=== PATIENT | female | born 1950 | race Caucasian/White ===

== ENCOUNTER 2017-01-27 09:58 | Day surgery (SDC) ==
[2017-01-22 10:48] LABS: MANUAL DIFF NEEDED? NO
[2017-01-22 10:53] LABS: BASO% 0.2 % (0.0-0.8); EOS# 0.09 X1000 (0.0-0.7); EOS% 1.1 % (0.0-10.0); HEMOGLOBIN 13.6 g/dL (12.0-16.0); LYMPH# 3.69 X1000 (1.2-3.4); MCH 30.6 PG (27-31); MCHC 33.2 g/dL (33-37); MCV 92.1 FL (81-99); MONO% 8.7 % (1.7-9.3); MPV 8.9 FL (7.4-10.4); PLT 295 X1000 (130-400); RBC 4.45 XMIL (4.2-5.4)
[2017-01-22 11:17] LABS: AGAP 8; ALBUMIN 4.3 g/dL (3.5-5.0); ALKALINE PHOSPHATASE 80 U/L (32-104); BUN 20 mg/dL (8-22); CALCIUM 9.3 mg/dL (8.8-10.2); CHLORIDE 105 mmol/L (98-107); COSMO 287; GOT 11 U/L (10-30); GPT 12 U/L (10-36); POTASSIUM 4.6 mmol/L (3.5-5.1); SODIUM 143 mmol/L (136-145); TCO2 30 mmol/L (25-35); TOTAL BILIRUBIN 0.44 mg/dL (0.20-1.00); TOTAL PROTEIN 7.1 g/dL (6.3-8.3)
--- NOTE | 2017-01-22 12:00 | EKG Report ---
Test Performed on : 01/22/2017 10:33:49 AM Test Reason : PAT Blood Pressure : / mmHG Vent. Rate : 058 BPM Atrial Rate : 058 BPM P-R Int : 126 ms QRS Dur : 084 ms QT Int : 402 ms P-R-T Axes : 019 086 096 degrees QTc Int : 394 ms Sinus bradycardia. T wave abnormality, consider lateral ischemia Abnormal ECG When compared with ECG of 16-DEC-2013 14:06, (Unconfirmed) No significant change was found Confirmed by Jeffrey TIMMONS, Aleksandar Connell ([id number]) on 01/22/2017 3:25:03 PM
[2017-01-27] MEDS ORDERED: LR 1,000 ML ONE ×3 (10:18→14:49)
[2017-01-27] MEDS ORDERED: PEPCID ONE (10:18)
[2017-01-27] MEDS ORDERED: REGLAN ONE (10:18)
[2017-01-27] MEDS ORDERED: MEFOXIN 2 GM/NS 50 ML ONE (10:19)
[2017-01-27] MEDS ORDERED: VENTOLIN HFA INH ONE (10:45)
[2017-01-27] MEDS ORDERED: XYLOCAINE 1% ONE (11:40)
[2017-01-27] MEDS ORDERED: SODIUM CHLORIDE 0.9% ONE (11:40)
[2017-01-27] MEDS ORDERED: MARCAINE 0.25% PF/EPI 1:200,000 ONE (11:41)
[2017-01-27] MEDS ORDERED: DIPRIVAN 1% ONE (13:07)
[2017-01-27] MEDS ORDERED: VERSED ONE (13:07)
[2017-01-27] MEDS ORDERED: FENTANYL ONE (13:07)
[2017-01-27] MEDS: DILAUDID ONE ×4 (13:12→13:42)
--- NOTE | 2017-01-27 13:37 | Diag Imaging Result Document ---
PROCEDURE NAME: OPERATIVE CHOLANGIOGRAM - 01/27/2017 INTRAOPERATIVE CHOLANGIOGRAM, SINGLE VIEW TAKEN DURING A PROCEDURE PERFORMED BY [facility]: FINDINGS: Contrast filled the common bile duct and has emptied into the duodenum. No stone or stricture. Fluoroscopy time was 55 seconds. IMPRESSION: Negative exam.
[2017-01-27] MEDS ORDERED: ULTRAM ONE (14:05)
[2017-01-27] MEDS ORDERED: QUELICIN (DOSE) ONE (14:49)
[2017-01-27] MEDS ORDERED: ZOFRAN ONE (14:49)
[2017-01-27] MEDS ORDERED: XYLOCAINE-MPF 2% ONE (14:49)
[2017-01-27] MEDS ORDERED: NEOSTIGMINE ONE (14:49)
[2017-01-27] MEDS ORDERED: DECADRON ONE (14:49)
[2017-01-27] MEDS ORDERED: ROBINUL ONE (14:49)
[2017-01-27] MEDS ORDERED: VENTOLIN HFA ONE (14:49)
[2017-01-27] MEDS ORDERED: ZEMURON ONE (14:49)
[2017-01-27 14:56] VITALS: BP 143/83
--- NOTE | 2017-01-27 17:03 | OPERATIVE NOTE ---
PROCEDURE DATE: 01/27/2017 PREOPERATIVE DIAGNOSIS: Chronic cholecystitis. POSTOPERATIVE DIAGNOSIS: Chronic cholecystitis. PROCEDURE PERFORMED: Laparoscopic cholecystectomy with cholangiogram. SURGEON: Ramón Turcios MD IMPLEMENTATION ANALYST: None. ANESTHESIA: General endotracheal. FINDINGS: Normal biliary tree on cholangiogram. There were some adhesions on her right side. COMPLICATIONS: None at the time of dictation. ESTIMATED BLOOD LOSS: 5 mL. SPECIMENS REMOVED: Gallbladder and its contents. HISTORY: The patient is a 66-year-old female, presenting with symptoms concerning for gallbladder disease. The risks, benefits, and alternatives of the procedure were discussed. All questions were answered. DESCRIPTION OF PROCEDURE: After informed consent was obtained, the patient was brought to the operating theatre and transferred to the operating table and placed in supine position. General orotracheal anesthesia was then performed without complication. A formal time-out was then performed, confirming patient, date, and procedure. All were in agreement. At that time, attention was given to the abdomen. An infraumbilical incision was made, through which, using Optiview technique, we were able to insert an 11 mm trocar and connected it to insufflation. A pneumoperitoneum was achieved. Under direct visualization, we placed 3 more trocars, all 5 mm, 1 in the subxiphoid and 2 in the right upper quadrant. Using these, the gallbladder was identified. There were some adhesions on the right lateral wall. We did have to take these down sharply but, once we were able to do this, we were able to retract the gallbladder cephalad. We dissected out the cystic duct and cystic artery to achieve the critical view of safety. We clipped the cystic duct once and did a ductotomy. We performed a cholangiogram, which showed normal filling of the biliary tree. We then doubly clipped and ligated the cystic duct and cystic artery and then took the gallbladder off the gallbladder fossa using electrocautery and brought it out through the infraumbilical incision. We then irrigated the abdomen copiously. We examined the gallbladder fossa. The clips were in good position. No active bleeding. No drainage of bile. We then closed the infraumbilical incision with 0 Vicryl and Samuel-Danny device. We then removed all trocars and disconnected insufflation. The pneumoperitoneum was released. We then closed all skin incisions with 4-0 Monocryl and placed sterile dressings. The patient tolerated the procedure well and was transferred to the recovery room in stable condition.
== END 2017-01-27 14:50 | disposition home or self-care (01) ==
LOC: OPS 09:58
PROVIDERS: ATTEND Surgery
DX: K81.1 Chronic cholecystitis (principal); R10.11 Right upper quadrant pain; I10 Essential (primary) hypertension; F17.210 Nicotine dependence, cigarettes, uncomplicated; J44.9 Chronic obstructive pulmonary disease, unspecified; J45.909 Unspecified asthma, uncomplicated; K21.9 Gastro-esophageal reflux disease without esophagitis; M54.9 Dorsalgia, unspecified; Z79.899 Other long term (current) drug therapy; Z87.11 Personal history of peptic ulcer disease; Z80.0 Family history of malignant neoplasm of digestive organs; Z82.49 Family history of ischemic heart disease and other diseases of the circulatory system
CPT/HCPCS: 74300; 80053; 85025; 88304; 93005; 93010; C1751; J0330; J0694; J1100; J1170; J2250; J2405; J3010; J7120; Q9966; J2710

== ENCOUNTER 2019-01-11 06:36 | Observation (INO) ==
[2019-01-11 10:01] LABS: INR 0.81; PROTIME 11.8 Seconds (11.0-16.0)
[2019-01-11 10:02] LABS: PTT 29.1 Seconds (22.3-41.8)
--- NOTE | 2019-01-11 11:36 | Diag Imaging Result Doc PS360 ---
EXAM: CHEST-2 VIEWS 01/11/2019 HISTORY: POST LUNG BIOPSY TECHNIQUE: Inspiratory expiratory chest at 1116 COMMENT: There is a small apical pneumothorax on the right measuring less than 12 mm on the expiration view. There is no evidence of pleural fluid collection. Otherwise there is no evidence of acute disease. The opacity in the right upper lobe which has been previously demonstrated on CT is again noted. IMPRESSION: Small right apical pneumothorax following percutaneous biopsy. This report was discussed with Ethan Lanier M.D. on 01/11/2019 at 1133 and was readback. Electronically signed by Jeromy King 01/11/2019 11:34 AM
--- NOTE | 2019-01-11 11:40 | Diag Imaging Result Doc PS360 ---
EXAM: CT GUIDED BIOPSY LUNG 01/11/2019 HISTORY: R-UPPER LUNG TECHNIQUE: Percutaneous biopsy of the right upper lobe COMMENT: The risks and benefits the procedure including the possibility of bleeding, infection, reaction to lidocaine, or pneumothorax was discussed with the patient and she agreed to the procedure. Following sterile preparation the skin and administration 1% lidocaine to the skin and deeper soft tissues, a 20-gauge Temno coaxial core biopsy needle was employed to obtain three cores from the lesion. Some of the specimens contain anthracotic pigment. IMPRESSION: Successful CT-guided percutaneous biopsy of the right upper lobe. (Postprocedural radiographs demonstrate a small right apical pneumothorax.) Electronically signed by Jeromy King 01/11/2019 11:38 AM
[2019-01-11] MEDS ORDERED: DEMEROL ONE (11:45)
[2019-01-11] MEDS ORDERED: TYLENOL ONE (12:24)
[2019-01-11 12:47] LABS: BASO# 0.01 X1000 (0.0-0.2); BASO% 0.1 % (0.0-0.8); EOS# 0.09 X1000 (0.0-0.7); EOS% 1.3 % (0.0-10.0); HEMATOCRIT 40.2 % (37.0-47.0); HEMOGLOBIN 13.1 g/dL (12.0-16.0); LYMPH# 3.29 X1000 (1.2-3.4); LYMPH% 46.9 % (20.5-51.1); MCH 30.9 PG (27-31); MCHC 32.6 g/dL (33-37); MCV 94.8 FL (81-99); MONO# 0.65 X1000 (0.11-0.59); MONO% 9.3 % (1.7-9.3); MPV 9.1 FL (7.4-10.4); NEUT# 2.97 X1000 (1.4-6.5); NEUT% 42.4 % (42.2-75.2); PLT 298 X1000 (130-400); RBC 4.24 XMIL (4.2-5.4); WBC 7.01 X1000 (4.8-10.8)
[2019-01-11] MEDS ORDERED: SOLU-MEDROL IV ONE (12:54)
[2019-01-11] MEDS ORDERED: DUONEB (A & A) INH PRN (12:55)
[2019-01-11] MEDS ORDERED: TORADOL IV ONE (12:55)
[2019-01-11 12:56] LABS: AGAP 11; BUN 15 mg/dL (8-22); CALCIUM 9.1 mg/dL (8.8-10.2); CHLORIDE 102 mmol/L (98-107); COSMO 278; CREATININE 0.7 mg/dL (0.5-0.9); ESTIMATED GFR > 60; GLUCOSE 96 mg/dL (70-104); POTASSIUM 4.2 mmol/L (3.5-5.1); SODIUM 139 mmol/L (136-145); TCO2 26 mmol/L (25-35)
[2019-01-11] MEDS ORDERED: TORADOL IV PRN (13:07)
--- NOTE | 2019-01-11 13:26 | HISTORY AND PHYSICAL ---
HISTORY OF PRESENT ILLNESS: This is a 68-year old who had a CT-guided needle biopsy of her right lung and has a small pneumothorax. Does have a good deal of pleuritic pain, so going to put her in for observation, make sure this pneumothorax does not increase in size. PAST MEDICAL HISTORY: She has apparently hypertension and she has a long history of smoking. She has had dyspepsia and apparently gastritis and also colitis, but her main complaints apparently have been evaluating a right upper lobe pulmonary lesion and had biopsy today with pneumothorax. ALLERGIES: Codeine, morphine makes her sick, nauseated, nonsteroidal anti-inflammatories and aspirin upset her stomach. She is allergic to antihistamines, Bentyl and Flagyl. FAMILY HISTORY: Father with colon cancer. Mother with depression and hypertension. SOCIAL HISTORY: No alcohol, but she does smoke and has smoked for greater than 20-dbrp-bvhh history. REVIEW OF SYSTEMS: General: She is in a good deal discomfort, but she did not report any change in weight or fever or chills. HEENT: No complaints of change in visual or hearing acuity. No neck pain. Respiratory: She does have pleuritic pain and does feel a little short of breath. She has got pleuritic pain in the right mid upper anterior chest. Cardiovascular: No squeezing or pressure chest pain. No palpitations. GI/: No gross hematuria or dysuria. No change in her bowels reported. Endocrinologic/Hematologic: No significant history. PHYSICAL EXAMINATION: GENERAL: She is awake and alert. She is sitting up. She is holding the right side of her chest because of the pleuritic pain. VITALS: Temperature 98.6 degrees, pulse 54, respirations 18, blood pressure 113/58. HEENT: Pupils are equal. Conjunctiva pink. Sclerae clear. NECK: No distended neck veins. Neck was supple. No cervical or supraclavicular adenopathy appreciated. LUNGS: Clear anterior and posterior. I do not appreciate a pleural rub or pericardial rub. CARDIOVASCULAR: Regular rhythm and rate. PMI nondisplaced. ABDOMEN: Soft. No pedal edema. SKIN: Warm and dry. LABORATORY: White count 7010, hematocrit 40, platelet count 298,000. Sodium 139, potassium 4.2, chloride 102, BUN 15, creatinine 0.7. ProTime 11.8, PTT is 29. IMAGING: Chest x-ray: Small right apical pneumothorax following percutaneous biopsy reported. She had a CT lung biopsy successfully of the right upper lobe. ASSESSMENT AND PLAN: 1. CT-guided lung biopsy on the right with small pneumothorax. We are going to put her into observation. Hopefully, this will resolve spontaneously. She is in a good deal pleuritic pain. I will give her some Solu-Medrol and I will give her a Toradol. She states that opioids make her feel sick and make her confused. 2. History of hypertension, aware. 3. A long history of tobacco and suspect some underlying COPD. 4. She gives a history that she broke her ribs on her left side, but she never had to have a chest tube. cc: MD Ethan Horta MD
--- NOTE | 2019-01-11 14:00 | Diag Imaging Result Doc PS360 ---
EXAM: CHEST-2 VIEWS 01/11/2019 HISTORY: POST LUNG BX INSPIR-EXPIR TECHNIQUE: Inspiratory expiratory chest COMMENT: The volume of pneumothorax on the right has increased to measure 2.5 cm at the apex on the expiratory view. No apparent pleural fluid is present. IMPRESSION: Increasing right pneumothorax. This report was discussed with Sony Murphy M.D. on 01/11/2019 at 1357 and was readback. Electronically signed by Jeromy King 01/11/2019 1:57 PM
[2019-01-11] MEDS: NICODERM PATCH TD SCH (14:47)
[2019-01-11] MEDS: DUONEB (A & A) INH SCH ×3 (15:56→23:15)
--- NOTE | 2019-01-11 18:01 | Diag Imaging Result Doc PS360 ---
Chest x-ray two views - 01/11/2019 INDICATION: follow up pneumothorax COMPARISON: 1:49 PM FINDINGS: The right apical pneumothorax is stable. This measures about 2.4 cm maximally. IMPRESSION: Stable right apical pneumothorax. This report was discussed with Dr. Mike on 01/11/2019 at 5:59 PM and was readback. Electronically signed by Laron Tompkins 01/11/2019 5:59 PM
--- NOTE | 2019-01-11 18:13 | GENERAL SURGERY CONSULTATION ---
DATE: 01/11/2019 REASON FOR CONSULTATION: Pneumothorax. HISTORY OF PRESENT ILLNESS: This is a 68-year-old female who underwent CT-guided core needle biopsy of a right lung mass this morning with postoperative pneumothorax developing. It has been enlarging after at least one repeat set of x-rays. She initially was in a lot of pleuritic pain, but currently seems to have settled down and is not complaining of pain or shortness of breath at this time. PAST MEDICAL HISTORY: Hypertension, COPD, tobacco abuse, gastroesophageal reflux disease, colon polyps. PAST SURGICAL HISTORY: Colonoscopies with polypectomy. ALLERGIES: Cetirizine, codeine, ibuprofen, morphine, Bentyl, Flagyl, antihistamines. FAMILY HISTORY: Her father had colon cancer. Mother with depression and hypertension. SOCIAL HISTORY: She has smoked one-third of a pack of cigarettes per day for roughly 40 years. She denies alcohol use or other illicit drug use. CURRENT MEDICATIONS: DuoNeb, Toradol, nicotine patch. REVIEW OF SYSTEMS: Ten systems reviewed and negative except as noted above. PHYSICAL EXAMINATION: Vital Signs: Temperature 97.7 degrees, pulse 50s, respiratory rate 16-18, blood pressure 109-130 systolic, O2 saturation 96% to 100% on room air. General: She is awake and alert, oriented x4. No acute distress. HEENT: Normocephalic, atraumatic. Extraocular muscles intact. Pupils equal, round, and reactive to light. Sclerae anicteric. Moist mucous membranes. Neck: Supple. No thyromegaly. No crepitus. Cardiovascular: Regular rate and rhythm. Respiratory: Bilateral breath sounds. No increased work of breathing. No crepitus appreciated. Gastrointestinal: Soft, nontender. No mass or organomegaly. Extremities: No clubbing, cyanosis, or edema. Skin: Warm and dry. No rash. Musculoskeletal: Moves all extremities equally and well. LABORATORY: CBC and metabolic profile reviewed and unremarkable. IMAGING: Her follow-up chest x-rays have been reviewed, showing a right apical pneumothorax. The most recent one appears to show some enlarging. ASSESSMENT AND PLAN: Therefore, I have recommended her a right chest tube or drain catheter placement. We discussed the risks and benefits, including bleeding, injury to the lung parenchyma, failure of the tube, requiring more procedures, and other imponderables. She understands and agrees to proceed. cc: David Mike MD
--- NOTE | 2019-01-11 18:50 | GENERAL SURGERY PROGRESS NOTE ---
DATE: 01/11/2019 ADDENDUM: I reviewed the chest x-ray with the radiologist and it actually shows some slight decrease in the size of the pneumothorax. The patient again is feeling okay right now, is not in any distress and wishes to hold off on the chest tube, which I find reasonable. We will put her on oxygen by nasal cannula and repeat a chest x-ray in the morning and reexamine her that time. cc: David Mike MD
[2019-01-12] MEDS ORDERED: BUSPAR PO PRN ×3 (00:25→00:35)
[2019-01-12 01:46] LABS: URINE SOURCE CLEAN CATCH
[2019-01-12 01:51] LABS: BILIRUBIN URINE NEGATIVE (NEGATIVE); BLOOD URINE MODERATE (NEGATIVE); COLOR YELLOW; GLUCOSE URINE 300 mg/dL (NEGATIVE); KETONE URINE 10 mg/dL (NEGATIVE); LEUKOCYTES URINE NEGATIVE (NEGATIVE); NITRITE URINE NEGATIVE (NEGATIVE); PH URINE 6.5; PROTEIN URINE TRACE mg/dL (NEGATIVE); SP GRAVITY URINE 1.012; TURBIDITY URINE CLEAR (CLEAR); UROBILINOGEN URINE NORMAL (NORMAL)
[2019-01-12 01:52] LABS: UR EPITHELIAL CELLS <10 /HPF (<10); URINE BACTERIA NEGATIVE /HPF; URINE WBC <10 /HPF (<10)
[2019-01-12] MEDS: DUONEB (A & A) INH SCH ×2 (03:20→08:02)
--- NOTE | 2019-01-12 08:14 | Diag Imaging Result Doc PS360 ---
EXAM: CHEST-PORTABLE INDICATION: pneumothorax TECHNIQUE: One view COMPARISON: 01/11/2019 FINDINGS: The lungs are grossly clear. The small right apical pneumothorax has not changed. No new consolidation is identified. Cardiac silhouette is stable. IMPRESSION: Stable right apical pneumothorax. Electronically signed by Nigel Thacker 01/12/2019 8:11 AM
--- NOTE | 2019-01-12 08:55 | GENERAL SURGERY PROGRESS NOTE ---
DATE: 01/12/2019 SUBJECTIVE: The patient says she feels a little better overall. No more chest pain. She does feel a little short of breath when she gets up and walks. OBJECTIVE: Vitals: She is afebrile. Vital signs are stable. General: She is awake, alert, oriented x4. No acute distress. Respiratory: She has bilateral equal breath sounds. No increased work of breathing. No crepitus in the chest wall or neck. IMAGING: The chest x-ray this morning shows a stable, somewhat small right apical pneumothorax. ASSESSMENT/PLAN: A 68-year-old female with right iatrogenic pneumothorax after lung biopsy. I would recommend further observation today, allowing her to ambulate, but keeping her on oxygen and repeat imaging in the morning. If it is stable again tomorrow, then I would allow her to be discharged. If it worsens, we will go ahead and plan on a chest drainage tube at that time. cc: David Mike MD
[2019-01-12] MEDS ORDERED: ULTRAM PO PRN (09:04)
[2019-01-12] MEDS ORDERED: ZOFRAN IV PRN (09:07)
[2019-01-12] MEDS ORDERED: NS NEB INH SCH (09:15)
[2019-01-12] MEDS: NICODERM PATCH TD SCH (09:15)
[2019-01-12] MEDS: TYLENOL PO PRN (15:27)
[2019-01-12] MEDS: XOPENEX NEB INH SCH ×3 (15:51→21:40)
--- NOTE | 2019-01-12 17:59 | PROGRESS NOTE ---
DATE: 01/12/2019 SUBJECTIVE: The patient is resting comfortably in bed. She states that she feels weak. OBJECTIVE: Vital Signs: Temperature 98.6, blood pressure 126/68, heart rate 58 , respirations 18, O2 saturation is 100% on 2 L nasal cannula. General: This is an elderly female lying in bed in no acute distress. Heart: S1, S2. Normal. Bradycardic. Lungs: Equal air entry bilaterally. No crackles. No rales. Abdomen: Positive bowel sounds. Soft, nontender, nondistended. Extremities: No edema, no cyanosis. Neurologic: The patient is alert and oriented x3. LABS: Reviewed. ASSESSMENT AND PLAN: 1. Right apical pneumothorax. Stable. Further management as per the general surgeon. 2. Non small cell lung cancer. The patient will be following up with Dr. Lanier to discuss treatment options upon discharge. 3. Tobacco dependence. The patient has been counseled about smoking cessation. 4. Will consult physical therapy. cc: Jade Barth MD MTDD
[2019-01-13] MEDS: XOPENEX NEB INH SCH ×2 (03:23→11:16)
[2019-01-13 06:51] LABS: AGAP 11; BUN 22 mg/dL (8-22); CALCIUM 8.7 mg/dL (8.8-10.2); CHLORIDE 106 mmol/L (98-107); COSMO 290; CREATININE 0.7 mg/dL (0.5-0.9); ESTIMATED GFR > 60; GLUCOSE 121 mg/dL (70-104); POTASSIUM 4.4 mmol/L (3.5-5.1); SODIUM 143 mmol/L (136-145); TCO2 26 mmol/L (25-35)
[2019-01-13] MEDS: NICODERM PATCH TD SCH (08:04)
--- NOTE | 2019-01-13 08:05 | Diag Imaging Result Doc PS360 ---
EXAM: CHEST-2 VIEWS 01/13/2019 HISTORY: pneumothorax TECHNIQUE: PA and lateral chest COMMENT: There is an apical pneumothorax on the right which has decreased in volume measuring less than 17 mm on the current study compared to 24 mm on 01/12/2019. Otherwise, there has been no significant change. IMPRESSION: Slightly diminished right pneumothorax. Electronically signed by Jeromy King 01/13/2019 8:02 AM
[2019-01-13] MEDS: TYLENOL PO PRN (08:30)
[2019-01-13 11:21] VITALS: BP 115/64
--- NOTE | 2019-01-14 05:43 | DISCHARGE SUMMARY ---
ADMISSION DATE: 01/11/2019 DISCHARGE DATE: 01/13/2019 FINAL DISCHARGE DIAGNOSES: 1. Right apical pneumothorax, status post CT-guided lung biopsy. 2. Chronic obstructive pulmonary disease. 3. Hypertension. 4. Hyperlipidemia. 5. Gastroesophageal reflux disease. 6. Non small cell lung carcinoma. CONSULTATIONS: General Surgery consultation with Dr. Mike. PROCEDURES PERFORMED: CT-guided lung biopsy performed on 01/11/2019. HOSPITAL COURSE: Ms. Beckham is a 68-year-old female with a new diagnosis of non-small cell lung cancer, hypertension and COPD, who was admitted after undergoing a CT-guided lung biopsy. Following the procedure, the patient was noted to have a right apical pneumothorax. The patient was admitted to the hospitalist service and general surgery was consulted. After assessment by the surgeon, it was decided to do serial chest x-rays and monitor the patient's response and improvement by the general surgeon. The patient was placed on supplemental oxygen and serial chest x-rays revealed improvement in the patient's pneumothorax. The pathology came back as non- small cell lung carcinoma. The patient is scheduled to follow up with Dr. Lanier to go over these results and to discuss a treatment plan. On the day of discharge the patient was weaned off of supplemental oxygen and a repeat chest x-ray showed a diminished right pneumothorax which was an improvement from the initial imaging. DISCHARGE MEDICATIONS: 1. Amlodipine benazepril 1 tab orally daily. 2. Lipitor 40 mg p.o. at bedtime. 3. BuSpar 5 mg p.o. p.r.n. 4. Vitamin D3, 5000 units oral daily. 5. Vitamin B12, 5000 mcg oral daily. 6. Omeprazole 40 mg p.o. every other day. 7. CoQ10, 400 mg p.o. daily. DISCHARGE DIET: Regular diet. ACTIVITY: As tolerated. FOLLOWUP INSTRUCTIONS: The patient will need to follow up with Dr. Lanire as scheduled by his clinic to go over the pathology report results. cc: MD Ethan Ahumada MD Katherine Takundwa, MD MTDD
== END 2019-01-13 12:57 | disposition home or self-care (01) ==
LOC: 4N 06:36 → OPS 06:36 → SUATTDRO 12:32
PROVIDERS: ATTEND Internal Medicine
CPT/HCPCS: 32405; 71010; 71020; 71045; 71046; 77012; 80048; 81001; 85025; 85610; 85730; 88305; 94640; 94761; 97116; 97162; A9270; J1885; J2175; J2930